=== PATIENT | female | born 1990 | race African-American/Black ===

== ENCOUNTER 2021-04-22 12:42 | Outpatient (CLI) | payer OTHER, MEDICAID, SELFPAY ==
--- NOTE | ~2021-04-22 | US_ITS ---
EXAMINATION: US OB <=14 wk fetus w TV DATE: 04/22/2021 14:09 INDICATION: Establish viability and dating of during first trimester TECHNIQUE: Real-time pelvic ultrasound utilizing both a transvaginal and transabdominal probe was pe rformed. The interpreting radiologist was not present for the study. COMPARISON: None. FINDINGS: The uterus measures 9.7 x 5.6 x 7.1 cm. There is a 4 mm anechoic likely gestational sac at the withi n the endometrial complex at the right side of the fundus. No evident internal yolk sac or pole yet apparent likely due to early stage of . The right ovary measures 3.7 x 2.4 x 1.7 cm. The left ovary measures 4.1 x 2.4 x 1.9 cm. Vascular cass w identified in both ovaries on color Doppler. There is a minimal amount of anechoic likely free flui d in the pelvis. IMPRESSION: 1. Small round fluid collection in the endometrial complex likely a gestational sac with mean diamete r of 4 mm but without discernible internal yolk sac or pole likely due to early stage of pregna ncy. Recommend follow-up with serial beta-hCG levels with repeat imaging as clinically indicated. Reviewed, dictated and finalized at location H. MS COUNSEL IMPRESSION: 1. Small round fluid collection in the endometrial complex likely a gestational sac with mean diameter of 4 mm but without discernible internal yolk sac or fe kelsi pole likely due to early stage of . Recommend follow-up with seria l beta-hCG levels with repeat imaging as clinically indicated.
== END 2021-04-22 12:43 | disposition home or self-care (01) ==
LOC: ANHIMG 12:51
PROVIDERS: Visit Provider Obstetrics & Gynecology
DX: N91.2 Amenorrhea, unspecified (principal)
CPT/HCPCS: 76801; 76817

== ENCOUNTER 2021-04-28 13:14 | Outpatient (RCR) | payer OTHER, MEDICAID, SELFPAY ==
[2021-04-30 22:24] LABS: Progesterone 12.7 ng/mL (***)
== END 2021-07-27 23:59 | disposition home or self-care (01) ==
LOC: ANHLAB 13:14
PROVIDERS: Visit Provider Obstetrics & Gynecology
DX: Z34.91 Encounter for supervision of normal pregnancy, unspecified, first trimester (principal)
CPT/HCPCS: 36415; 84144; 84702; 86850; 86900; 86901

== ENCOUNTER 2021-05-11 13:01 | Outpatient (CLI) | payer OTHER, MEDICAID, SELFPAY ==
--- NOTE | ~2021-05-11 | US_ITS ---
EXAMINATION: US OB <=14 wk fetus w TV EXAM DATE: 05/11/2021 14:04 INDICATION: For dating, viability. Follow-up from 04/22/2021. 1st trimester. TECHNIQUE: Pelvic obstetrical transabdominal sonogram was performed by a technologist. There are mu ltiple grayscale and Doppler images available for interpretation. Comparison is made to prior examina tion from 04/22/2021. FINDINGS: Uterus measures 9.8 x 6.1 x 7.2 cm, and is morphologically normal. Again there is thickened endometrium, measuring up to 2.3 cm. Tiny cystic regions within the thickened portion of the endomet rium which is in the right fundal region, similar appearance to prior exam. Endometrium at lower uter ine segment normal in thickness. There is no free pelvic fluid. Right adnexa: The ovary measures 2.6 x 2.1 x 1.5 cm with multiple small peripheral follicles. Ovarian vascular flow confirmed. Left adnexa: The ovary measures 3.1 x 1.8 x 2.6 cm with multiple small peripheral follicles. Ovarian vascular flow confirmed. Early intrauterine or recent spontaneous are common causes of elevated beta hCG in absence of intrauterine confirmation. Ultrasound can sometimes identify, but never exclud e an ectopic in the setting of positive beta hCG. Follow up as warranted clinically with s erial beta hCG levels or ultrasound. IMPRESSION: 1. Persistent thickened endometrium right fundal region with small cystic spaces, no intrauterine or extrauterine gestation identified. Gestational trophoblastic disease not excludable. Correlate with beta hCG levels (is this elevated?) And obtain follow-up ultrasound. 2. Normal-sized ovaries without identification of corpus luteal cyst. Both have numerous peripheral follicles, possible polycystic ovarian disease. Reviewed, dictated and finalized at location A. YTICAL SCIENCES DIRECTOR IMPRESSION: 1. Persistent thickened endometrium right fundal region with small cystic spac es, no intrauterine or extrauterine gestation identified. Gestational trophobla stic disease not excludable. Correlate with beta hCG levels (is this elevated?) And obtain follow-up ultrasound. 2. Normal-sized ovaries without identification of corpus luteal cyst. Both hav e numerous peripheral follicles, possible polycystic ovarian disease.
== END 2021-05-11 13:02 | disposition home or self-care (01) ==
PROVIDERS: Visit Provider Obstetrics & Gynecology
DX: O20.0 Threatened abortion (principal); Z3A.00 Weeks of gestation of pregnancy not specified
CPT/HCPCS: 36415; 76801; 76817; 84702

== ENCOUNTER 2021-05-18 13:02 | Outpatient (RCR) | payer OTHER, MEDICAID, SELFPAY | END 2021-08-16 23:59 | disposition home or self-care (01) | LOC: ANHLAB 13:02 | PROVIDERS: Visit Provider Obstetrics & Gynecology | DX: O02.0 Blighted ovum and nonhydatidiform mole (principal); Z3A.00 Weeks of gestation of pregnancy not specified | CPT/HCPCS: 36415; 84702 ==

== ENCOUNTER → 2021-05-22 03:00 | Outpatient (CLI) | payer OTHER, MEDICAID, SELFPAY ==
[2021-05-22 21:56] LABS: SARS-CoV-2 RNA PCR Positive
== END ==
PROVIDERS: Visit Provider Obstetrics & Gynecology
DX: U07.1 COVID-19 (principal)
CPT/HCPCS: C9803; U0003; U0005

== ENCOUNTER 2021-06-01 00:45 | Day surgery (SDC) | payer OTHER, MEDICAID, SELFPAY ==
[2021-05-19 15:46] VITALS: BMI 41.1
--- NOTE | 2021-05-19 15:55 | PC.NURSE ---
Addendum entered by Gina Gutierrez RN 05/28/21 09:10: PT TO ARRIVE AT 1200 ON 06/01/21 FOR SURGERY AT 1400. Addendum entered by Gina Gutierrez RN 05/26/21 11:07: ARRIVE AT 0700 ON 05/29/21 FOR SURGERY AT 0900. Original Note: Report to the Outpatient Waiting Room, entrance under the green pavilion located off [facility], at time 1215 on date 05/25/21. OR Time: 1415. - You and your visitor will be asked a series of questions to screen for COVID 19 for your protection. - A mask is required within the hospital. - Only one visitor is allowed at this time. Patient visitors will be guided where to wait when not with patient. Preoperative COVID Testing Requirements: COVID TEST 05/22 AT 0905 No COVID Test needed if: (proof is required; if not received patient will have Rapid Test prior to entry) - Patient has received COVID Vaccine at least 14 days prior to procedure date or - Patient has positive COVID test result within last 90 days of surgery date. COVID Test needed if above criteria is not met If not COVID vaccinated a COVID test must be conducted within 72 hours of surgery and patient is asked to isolate self from time of testing until procedure. You will go to the [facility] for your COVID testing. The [facility] is located at the corner of [address] [facility]. You will only be called if COVID results are positive and your surgeon may reschedule your elective surgery date. Patients may have clear liquids (water, carbonated beverages, clear teas, apple juice) until 3 hours prior to surgery with a maximum of 20 ounces. - No food from midnight until time of surgery Take the following medications with a SIP of water the morning of surgery: NONE Medications to discontinue per physician: N/A Date to take last dose: N/A Please no make-up, nail botswanan, hairspray, perfume, deodorant, or body powder the day of surgery. No jewelry (including any body piercings) or valuables the day of surgery, leave them at home. Please take a shower or bath the night before, or the morning of, surgery with an antibacterial soap. Wear comfortable, loose fitting clothing. - Jewelry must be removed prior to entering the operating room. Rings and piercings that are not removed may be cut off. - The hospital will not accept responsibility for valuables. - Please leave all valuables, including medications, at home the day of surgery. If you are going home after surgery, a licensed driver engineer must drive you home. - NO public transportation without another adult. - We recommend that an adult stay with you for 24 hours following discharge. - We also recommend that you do not drive, make important decision, drink alcoholic beverages, or take any drugs that were not prescribed by your health care provider for at least 24 hours after your discharge time. Follow any additional instructions given to you from your surgeon. Telephone instructions given to NNAMDI GUNN and asked if any additional questions and then verbalized understanding. Patient advised to call surgeon office or pre surgery nurse liaison [phone] if any additional questions.
--- NOTE | 2021-05-25 08:03 | PM.IMHP ---
H&P: HPI History of Present Illness Date/Time: 05/25/21 08:03 She has abnormally rising HCG and U/S concerning for molar . No bleeding since LMP. 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 Vaginal delivery x2 Surgical History Surgical History No pertinent past surgical history Family History Family History Father Alcoholism Heart disease Hypertension Mother Hypertension Thyroid disorder Grandparent Diabetes mellitus Grandparent Bone cancer Hypertension Social History Social History Smoking status: Never smoker Alcohol intake: never Substance use: never Substance use type: does not use Living arrangements: with family Spiritual care concerns: No Agree to blood products: Yes Meds Home Medications and Allergies Home Medications Medication Instructions Recorded Confirmed Type No Home Medications 05/18/21 05/19/21 History Allergies Allergy/AdvReac Type Severity Reaction Status Date / Time amoxicillin Allergy Unknown Swelling Verified 05/19/21 15:46 of Lip/Tongue/Throat Penicillins Allergy Unknown Swelling Verified 05/19/21 15:46 of Lip/Tongue/Throat Exam Const: General: no acute distress, alert and awake Resp: Auscultation: clear to auscultation bilaterally Cardio: Rate: regular rate Rhythm: regular rhythm GI: Inspection: non-distended GI Palp: Yes Soft to palpation and No Tenderness to palpation present (GI) : Bimanual exam- vagina & uterus: normal bimanual exam, uterine mobility normal, non-tender and enlarged (12 week size) Bimanual Exam- Adnexa, other: normal adnexae, no masses and No adnexal tenderness Extrem: General: no pedal edema and no calf tenderness Psych: Mental Status: mental status grossly normal Assessment and Plan Assessment and plan (1) , molar: Code(s): O02.0 - Blighted ovum and nonhydatidiform mole Status: Acute Assessment and Plan: She signed consent after risks, benefits, complications, and alternatives discussed for D&C and hysteroscopy. Risks include but are not limited to bleeding; transfusion; infection; uterine perforation; need for further surgery and/or longer recovery time; risk of anesthesia. She expressed understanding and wishes to proceed.
--- NOTE | 2021-05-26 11:06 | PC.NURSE ---
Pt states no changes in medications since initial interview. Covid + 05/22 documented. Pt states all symptoms began 05/18 and have all resolved except for congestion. New instructions reviewed with pt. Pt denies further questions at this time.
--- NOTE | 2021-05-28 09:10 | PC.NURSE ---
Pt states no changes in medications or health history. New instructions reviewed with pt. Pt denies further questions at this time.
--- NOTE | 2021-06-01 08:18 | P.HP_ITS ---
H&P: HPI History of Present Illness Date/Time: 06/01/21 08:18 no bleeding since LMP, but abnormally rising HCG and ultrasound suggesting molar Chief Complaint: molar Review of Systems Review of Systems: All systems reviewed & are unremarkable except as noted in HPI and below PMFSH Past Medical History Medical History Abnormal Pap smear of cervix 04/16/21, ASCUS HPV pos Bulimia nervosa in partial remission Vaginal delivery x2 Surgical History Surgical History No pertinent past surgical history Family History Family History Father Alcoholism Heart disease Hypertension Mother Hypertension Thyroid disorder Grandparent Diabetes mellitus Grandparent Bone cancer Hypertension Social History Social History Smoking status: Never smoker Alcohol intake: never Substance use: never Substance use type: does not use Living arrangements: with family Spiritual care concerns: No Agree to blood products: Yes Meds Home Medications and Allergies Home Medications Medication Instructions Recorded Confirmed Type No Home Medications 05/18/21 05/28/21 History Allergies Allergy/AdvReac Type Severity Reaction Status Date / Time amoxicillin Allergy Unknown Swelling Verified 05/28/21 09:10 of Lip/Tongue/Throat Penicillins Allergy Unknown Swelling Verified 05/28/21 09:10 of Lip/Tongue/Throat Exam Const: General: no acute distress, alert and awake Resp: Auscultation: clear to auscultation bilaterally Cardio: Rate: regular rate Rhythm: regular rhythm GI: Inspection: non-distended GI Palp: Yes Soft to palpation and No Tenderness to palpation present (GI) : Bimanual exam- vagina & uterus: normal bimanual exam, uterine shape normal, non-tender, enlarged (10-12 weeks) and soft Bimanual Exam- Adnexa, other: normal adnexae, no masses and No adnexal tenderness Extrem: General: no pedal edema and no calf tenderness Psych: Mental Status: mental status grossly normal Assessment and Plan Assessment and plan (1) , molar: Code(s): O02.0 - Blighted ovum and nonhydatidiform mole Status: Acute Assessment and Plan: She signed consent for suction D&C after risks, benefits, complications, and alternatives discussed. She expressed understanding and wishes to proceed. Blood type O+ so no Rhogam needed
[2021-06-01 12:25] VITALS: BP 133/66; PULSE 68; RESP 16; TEMP 35.9; O2SAT 100
[2021-06-01] MEDS: LACTATED RINGERS 1,000 ML 30 ML IV CONT (12:50)
[2021-06-01] MEDS: ACETAMINOPHEN 500 MG TABLET 1000 MG PO (12:52)
--- NOTE | 2021-06-01 14:01 | WPDHPUPDATE1 ---
History and Physical Update Update Date/Time: 06/01/21 14:01 History and Physical has been reviewed, including an updated exam of the patient. There are NO changes in the patient's condition. Risks, benefits, and alternatives have been discussed and questions answered. Patient agrees to proceed with procedure.
--- NOTE | 2021-06-01 14:07 | WPDANESEPPF ---
Anes - Initial Pre Proc Eval Procedure: Operation Date: 06/01/21 14:00 Proposed Procedures p Suction Dilatation and Curettage - Shruthi Wall MD Date/Time: 06/01/21 14:07 Surgeon: Shruthi Wall MD Pre Op Diagnosis: missed ab Patient Data Age: 30 Gender: F Height: 1.68 m Weight: 126.2 kg Last Vital Signs Temp 35.9 C L 06/01/21 12:25 Pulse 68 06/01/21 12:25 Resp 16 06/01/21 12:25 BP 133/66 06/01/21 12:25 Pulse Ox 100 06/01/21 12:25 Allergies Allergy/AdvReac Type Severity Reaction Status Date / Time amoxicillin Allergy Unknown Swelling Verified 05/28/21 09:10 of Lip/Tongue/Throat Penicillins Allergy Unknown Swelling Verified 05/28/21 09:10 of Lip/Tongue/Throat Home Medications Medication Instructions Recorded Confirmed Type No Home Medications 05/18/21 05/28/21 History Patient hx anesthesia problems: none Family hx anesthesia problems: none Results Review: All pre-operative results and documents have been reviewed as part of the pre-operative evaluation. [facility] Past Medical History Medical History Abnormal Pap smear of cervix 04/16/21, ASCUS HPV pos Bulimia nervosa in partial remission Vaginal delivery x2 Surgical History Surgical History No pertinent past surgical history Family History Family History Father Alcoholism Heart disease Hypertension Mother Hypertension Thyroid disorder Grandparent Diabetes mellitus Grandparent Bone cancer Hypertension Social History Social History Smoking status: Never smoker Alcohol intake: never Substance use: never Substance use type: does not use Living arrangements: with family Spiritual care concerns: No Agree to blood products: Yes Anes - Eval Final PreProcedure Day of Procedure 06/01/21 14:07 Patient weight: morbidly obese Heart: regular rate and rhythm Lungs: clear to auscultation Airway: Mallampati scale class II Neurological: alert and oriented Last oral intake: >/= 8 hours ASA classification: III Emergent: no Anesthetic plan: proceed Anesthesia type and monitoring: general GIVS and standard monitoring Results Review: All pre-operative results and documents have been reviewed as part of the pre-operative evaluation. Informed Consent: The patient's anesthetic plan and its attendant risks and benefits were discussed with the patient/family/POA. Questions were solicited and answers provided to the satisfaction of the patient/family/POA.
--- NOTE | 2021-06-01 14:27 | W.PM.PROC2 ---
Procedure Note - Detailed Date of Procedure 06/01/21 Pre-op Diagnosis molar Post-op Diagnosis same Procedure Performed Suction D&C Surgeon Shruthi Wall MD Anesthesia MAC Indications Abnormally rising HCG and ultrasound, suspected molar Findings moderate amount PCOs Description of Procedure She was taken to the operating room where she was prepared and draped in the normal sterile fashion in the dorsal lithotomy position after being sedated. Speculum was placed in the vagina. 1% lidocaine was injected as a paracervical block. The anterior lip of the cervix was grasped with a single-tooth tenaculum. The cervix was dilated to allow passage of a 12. Suction curved curette. Several passes were made to evacuated the contents of the uterus. At 1 point, the tenaculum tore off the cervix. If the tenaculum was replaced. The curette easily passed again through the cervix. Once minimal blood in tissue was being obtained, a gentle sharp curettage was performed to loosen any remaining tissue. One more pass was made the suction curette. Minimal blood and no apparent tissue was obtained. The tenaculum was removed from the cervix. Pressure was held with ring forceps an Allis clamp. The laceration site was still bleeding slightly. The cervical laceration was repaired using 2-0 Vicryl in a running fashion with a total of 3 passes made. Excellent hemostasis was then assured. All instruments were removed from the vagina. She tolerated the procedure well. Sponge, lap, needle, and instrument counts were correct x2. She was taken to the recovery room in stable condition. Estimated Blood Loss 100 Drains No Packing No Pathology yes Complications No immediate complications Condition stable Disposition PACU
[2021-06-01 15:12] VITALS: BP 123/71; PULSE 101; RESP 18; O2SAT 95
[2021-06-01 15:40] VITALS: BP 126/63; PULSE 80; RESP 20
[2021-06-01 16:20] VITALS: BP 120/70; PULSE 80; RESP 20
[2021-06-01 16:40] VITALS: BP 130/64; PULSE 60; RESP 20
== END 2021-06-01 17:00 | disposition home or self-care (01) ==
PROVIDERS: Visit Provider Obstetrics & Gynecology
PROC: (CPT 59870; principal; 2021-06-01 14:00)
DX: O01.0 Classical hydatidiform mole (principal); E66.01 Morbid (severe) obesity due to excess calories; Z68.41 Body mass index [BMI] 40.0-44.9, adult
CPT/HCPCS: 59870; 36415; 84702; 88305; A9270; J2250; J2704; J3010; J7120

== ENCOUNTER 2021-06-27 13:16 | Outpatient (CLI) | payer MEDICAID, SELFPAY ==
[2021-06-27 14:22] LABS: Beta HCG Quantitative 9.34 mIU/ML
== END 2021-06-27 13:17 | disposition home or self-care (01) ==
LOC: ANHLAB 13:22
PROVIDERS: Visit Provider Obstetrics & Gynecology
DX: O02.0 Blighted ovum and nonhydatidiform mole (principal); Z3A.00 Weeks of gestation of pregnancy not specified
CPT/HCPCS: 36415; 84702